=== PATIENT | female | born 1960 | race Caucasian/White ===

== ENCOUNTER → 2017-08-04 | Outpatient (CLI) | payer BC ==
[~2017-08-04] MED LIST: ASPIRIN E.C. 8181 MG PO; EFFEXOR XR75 MG PO; FIBERCON625 MG PO; METFORMIN500 MG PO; PRILOSEC 10MG10 MG PO; VITAMIN D1000 IU PO; [UNRECOGNIZED DRUG - OTHER] PO
== END ==
LOC: MC.RAD 09:20
DX: Z12.31 Encounter for screening mammogram for malignant neoplasm of breast (principal)

== ENCOUNTER → 2017-08-11 | Outpatient (CLI) | payer BC | LOC: MC.RAD 12:42 | DX: N63.20 Unspecified lump in the left breast, unspecified quadrant (principal) ==

== ENCOUNTER → 2017-08-15 | Outpatient (CLI) | payer BC | LOC: MC.RAD 09:53 | DX: D05.02 Lobular carcinoma in situ of left breast (principal) ==

== ENCOUNTER 2017-08-25 06:49 | Day surgery (SDC) | payer BC ==
[~2017-08-25] VITALS: Ht 180.3 cm; Wt 103.8 kg
[2017-08-25] VITALS (7 sets, daily range): BP systolic 146–170; BP diastolic 64–84; PULSE 47–57; TEMP 97.4–98.7
[2017-08-25] MEDS ORDERED: ASPIRIN 81M81 MG/TA2 PO (09:01)
[2017-08-25] MEDS ORDERED: OMEGA-3 1000 MG1 CAP PO (09:02)
[2017-08-25] MEDS ORDERED: MELATONIN5 M1 SL (09:02)
[2017-08-25] MEDS ORDERED: ZESTRIL40 MG PO (09:04)
[2017-08-25] MEDS ORDERED: GLUCOPHAGE1000 MG PO (09:04)
[2017-08-25] MEDS ORDERED: LAMICTAL 25MG T25 MG PO (09:04)
[2017-08-25] MEDS ORDERED: LOPRESSOR 550 MG/TAB PO (09:05)
[2017-08-25] MEDS ORDERED: DIFLUCAN150 MG PO ×2 (09:06→09:07)
[2017-08-25] MEDS ORDERED: WELLBUTRIN XL150 MG PO (09:06)
[2017-08-25] MEDS ORDERED: MOTRIN 600600 MG/TAB PO (16:24)
[2017-08-25] MEDS ORDERED: COLACE 100100 MG/CAP PO (16:24)
[2017-08-25] MEDS ORDERED: PERCOCET 325 MG1 TA2 PO (16:25)
== END 2017-08-25 21:30 | disposition home or self-care (01) ==
LOC: SDCO 06:49 → SURG 18:25 → SDCO 21:30
DX: C50.912 Malignant neoplasm of unspecified site of left female breast (principal); C77.3 Secondary and unspecified malignant neoplasm of axilla and upper limb lymph nodes; E11.9 Type 2 diabetes mellitus without complications; E78.5 Hyperlipidemia, unspecified; D64.9 Anemia, unspecified; I10 Essential (primary) hypertension; K21.9 Gastro-esophageal reflux disease without esophagitis; F32.9 Major depressive disorder, single episode, unspecified; Z79.84 Long term (current) use of oral hypoglycemic drugs; Z79.82 Long term (current) use of aspirin; Z82.49 Family history of ischemic heart disease and other diseases of the circulatory system; Z83.3 Family history of diabetes mellitus
CPT/HCPCS: OP; A9541; J0690; J1100; J1170; J1885; J2405; J2704; J3010; J7030; J7120

== ENCOUNTER 2017-09-06 09:44 | Day surgery (SDC) | payer BC ==
[2017-09-06] VITALS (10 sets, daily range): BP systolic 116–145; BP diastolic 49–68; PULSE 47–63; TEMP 98.2–99
[~2017-09-06] VITALS: Ht 180.3 cm; Wt 101.5 kg
[~2017-09-06 09:44] MED LIST changes: +ASPIRIN 81M81 MG/TA2 PO; +COLACE 100100 MG/CAP PO; +DIFLUCAN150 MG PO; +GLUCOPHAGE1000 MG PO; +LAMICTAL 25MG T25 MG PO; +LOPRESSOR 550 MG/TAB PO; +MELATONIN5 M1 SL; +MOTRIN 600600 MG/TAB PO; +OMEGA-3 1000 MG1 CAP PO; +PERCOCET 325 MG1 TA2 PO; +WELLBUTRIN XL150 MG PO; +ZESTRIL40 MG PO
[2017-09-06] MEDS ORDERED: LAMICTAL 100MG100 MG PO (10:37)
[2017-09-06] MEDS ORDERED: LEXAPRO 5MG5 MG PO (10:37)
[2017-09-06] MEDS ORDERED: PERCOCET 325 MG1 TA2 PO (13:57)
[2017-09-06] MEDS ORDERED: MOTRIN 600600 MG/TAB PO (13:57)
== END 2017-09-06 17:17 | disposition home or self-care (01) ==
LOC: SDCO 09:44
DX: C50.912 Malignant neoplasm of unspecified site of left female breast (principal); Z17.0 Estrogen receptor positive status [ER+]; E78.2 Mixed hyperlipidemia; I10 Essential (primary) hypertension; K21.9 Gastro-esophageal reflux disease without esophagitis; F32.9 Major depressive disorder, single episode, unspecified; Z79.84 Long term (current) use of oral hypoglycemic drugs; Z79.82 Long term (current) use of aspirin
CPT/HCPCS: J0690; J1100; J1885; J2270; J2405; J2704; J3010; J7030

== ENCOUNTER 2017-10-14 10:34 | Day surgery (SDC) | payer BC ==
[2017-10-14] VITALS (7 sets, daily range): BP systolic 125–149; BP diastolic 58–64; PULSE 47–52; TEMP 98.4–98.6
[~2017-10-14] VITALS: Ht 180.3 cm; Wt 102.0 kg
[~2017-10-14 10:34] MED LIST changes: +LAMICTAL 100MG100 MG PO; +LEXAPRO 5MG5 MG PO
[2017-10-14] MEDS ORDERED: ZOCOR 20MG20 MG PO (11:40)
[2017-10-14] MEDS ORDERED: LATUDA20 MG PO (11:43)
[2017-10-14] MEDS ORDERED: COLACE 100100 MG/CAP PO (14:48)
[2017-10-14] MEDS ORDERED: PERCOCET 325 MG1 TA2 PO (14:48)
[2017-10-14] MEDS ORDERED: MOTRIN 600600 MG/TAB PO (14:48)
== END 2017-10-14 18:00 | disposition home or self-care (01) ==
LOC: SDCO 10:34
DX: C50.912 Malignant neoplasm of unspecified site of left female breast (principal); C77.3 Secondary and unspecified malignant neoplasm of axilla and upper limb lymph nodes; E11.9 Type 2 diabetes mellitus without complications; Z79.84 Long term (current) use of oral hypoglycemic drugs; Z79.82 Long term (current) use of aspirin; I10 Essential (primary) hypertension
CPT/HCPCS: C1788; J1644; J2270; J2405; J2704; J3010; J7120

== ENCOUNTER → 2017-11-03 | Outpatient (CLI) | payer BC ==
[~2017-11-03] MED LIST changes: +LATUDA20 MG PO; +ZOCOR 20MG20 MG PO
== END ==
LOC: COL.VAS 11:00
DX: C50.412 Malignant neoplasm of upper-outer quadrant of left female breast (principal)

== ENCOUNTER → 2018-09-07 | Outpatient (CLI) | payer BC | LOC: MC.RAD 09:40 | DX: N64.89 Other specified disorders of breast (principal); N63.20 Unspecified lump in the left breast, unspecified quadrant; Z85.3 Personal history of malignant neoplasm of breast; Z98.890 Other specified postprocedural states ==

== ENCOUNTER → 2018-09-12 | Outpatient (CLI) | payer BC | LOC: MC.RAD 08:56 | DX: N64.89 Other specified disorders of breast (principal); Z85.3 Personal history of malignant neoplasm of breast; Z92.3 Personal history of irradiation; Z98.890 Other specified postprocedural states ==

== ENCOUNTER → 2018-11-28 | Outpatient (CLI) | payer BC | LOC: MC.RAD 13:48 | DX: I10 Essential (primary) hypertension (principal); Z98.890 Other specified postprocedural states; Z85.3 Personal history of malignant neoplasm of breast; Z98.82 Breast implant status; Z92.3 Personal history of irradiation | CPT/HCPCS: G0279 ==

== ENCOUNTER 2019-03-15 18:25 | Emergency (ER) | payer BC ==
[~2019-03-15] VITALS: Ht 180.3 cm; Wt 90.9 kg
[2019-03-15 20:25] LABS: BASO % 0.3 % (0.0-2.0); EOS % 0.5 % (0-4.0); GRAN # 2.6 (1.4-6.5); HEMATOCRIT 39.7 % (37.0-47.0); HEMOGLOBIN 13.1 g/dl (12.5-16.0); LYMPH # 0.9 (1.2-3.4); LYMPH % 21.7 % (20.0-51.0); MEAN CELL VOLUME 90 fl (80.0-100.0); MEAN CORPUSCULAR HEMOGLOBIN 30 pg (27.0-31.0); MEAN CORPUSCULAR HGB CONC 33 g/dl (33.0-37.0); MONO # 0.5 (0.1-0.6); MONO % 11.5 % (1.7-9.3); PLATELET COUNT 116 K/mm3 (130-400); RED BLOOD COUNT 4.41 M/mm3 (4.10-5.30); REDCELL DISTRIBUTION WIDTH-CV 13.2 % (11.5-14.5)
[2019-03-15 20:36] LABS: ALANINE AMINOTRANSFERASE < 6 U/L (9-52); ALBUMIN 3.6 gm/dL (3.5-5.0); ALKALINE PHOSPHATASE 49 U/L (50-136); ANION GAP 8 mmol/L (7-16); AST,SGOT 10 U/L (15-37); BILIRUBIN,TOTAL 0.5 mg/dL (0.0-1.0); BLOOD UREA NITROGEN 12 mg/dL (7-17); CALCIUM 8.9 mg/dL (8.4-10.2); CARBON DIOXIDE 28 mmol/L (22-30); CHLORIDE 103 mmol/L (98-107); CREATININE, serum 0.48 (0.52-1.25); GLUCOSE 210 mg/dL (74-106); POTASSIUM 3.6 mmol/L (3.4-5.0); SODIUM 139 mmol/L (137-145); TOTAL PROTEIN 6.2 gm/dL (6.4-8.2)
[2019-03-15 20:37] LABS: ACETAMINOPHEN < 10 ug/mL (10-30); ALCOHOL(ethanol),MEDICAL < 10 mg/dL; SALICYLATE < 1.0 mg/dL
[2019-03-15 20:50] LABS: VALPROIC ACID (DEPAKENE) 93.7 ug/mL (50.0-100.0)
[2019-03-15 20:51] LABS: COLLECTION METHOD CLEAN CATCH
[2019-03-15 20:56] LABS: MUCOUS Present /lpf; PH 5 (5-8); URINE APPEARANCE Clear; URINE BACTERIA None Seen /hpf; URINE BILIRUBIN Negative (NEGATIVE); URINE BLOOD Negative (NEGATIVE); URINE COLOR Yellow; URINE GLUCOSE 3+ (NEGATIVE); URINE KETONE 1+ (NEGATIVE); URINE LEUKOCYTE ESTERASE 1+ (NEGATIVE); URINE NITRATE Negative (NEGATIVE); URINE PROTEIN(semi-quant) 1+ (NEGATIVE); URINE UROBILINOGEN >=4.0 mg/dL (NEGATIVE)
[2019-03-15 21:06] LABS: TRICYCLIC ANTIDEPRESS URINE NEGATIVE
[2019-03-16 01:50] VITALS: BP 121/56; PULSE 52; TEMP 97.8
[2019-03-16] MEDS ORDERED: OMNICEF 300MG300 MG PO (02:54)
[2019-03-16] MEDS ORDERED: DEPAKOTE500 MG PO (05:22)
[2019-03-16] MEDS ORDERED: GLUCOTROL 5M5 MG/TAB PO (05:23)
[2019-03-16] MEDS ORDERED: ARIMIDEX1 MG PO (05:26)
== END 2019-03-16 07:50 ==
LOC: COL.ER 18:25
PROVIDERS: Physician Assistant
DX: N39.0 Urinary tract infection, site not specified (principal); R45.851 Suicidal ideations; Z79.84 Long term (current) use of oral hypoglycemic drugs; Z79.82 Long term (current) use of aspirin

== ENCOUNTER 2019-05-27 18:50 | Emergency (ER) | payer BC ==
[~2019-05-27] VITALS: Ht 180.3 cm; Wt 92.3 kg
[~2019-05-27 18:50] MED LIST changes: +ARIMIDEX1 MG PO; +DEPAKOTE500 MG PO; +GLUCOTROL 5M5 MG/TAB PO; +OMNICEF 300MG300 MG PO
[2019-05-27 18:56] VITALS: TEMP 98.6
[2019-05-27 19:20] LABS: BASO % 0.2 % (0.0-2.0); EOS # 0.1 (0.0-0.7); EOS % 0.6 % (0-4.0); GRAN # 7.9 (1.4-6.5); GRAN % 74.8 % (42.2-75.2); HEMOGLOBIN 13.8 g/dl (12.5-16.0); LYMPH # 1.8 (1.2-3.4); LYMPH % 16.8 % (20.0-51.0); MEAN CELL VOLUME 90 fl (80.0-100.0); MEAN CORPUSCULAR HEMOGLOBIN 29 pg (27.0-31.0); MEAN CORPUSCULAR HGB CONC 32 g/dl (33.0-37.0); MEAN PLATELET VOLUME 9.6 fl (7.4-10.4); MONO # 0.8 (0.1-0.6); MONO % 7.3 % (1.7-9.3); PLATELET COUNT 192 K/mm3 (130-400); RED BLOOD COUNT 4.79 M/mm3 (4.10-5.30); REDCELL DISTRIBUTION WIDTH-CV 12.7 % (11.5-14.5)
[2019-05-27 19:34] LABS: ALANINE AMINOTRANSFERASE 13 U/L (4-34); ALBUMIN 4.3 gm/dL (3.5-5.0); ALKALINE PHOSPHATASE 77 U/L (50-136); ANION GAP 11 mmol/L (7-16); AST,SGOT 16 U/L (15-37); BILIRUBIN,TOTAL 0.6 mg/dL (0.0-1.0); BLOOD UREA NITROGEN 15 mg/dL (7-17); CALCIUM 9.2 mg/dL (8.4-10.2); CARBON DIOXIDE 27 mmol/L (22-30); CHLORIDE 101 mmol/L (98-107); CREATINE KINASE 25 U/L (30-135); GLUCOSE 160 mg/dL (74-106); LIPASE 28 U/L (23-300); POTASSIUM 4.2 mmol/L (3.4-5.0); SODIUM 138 mmol/L (137-145); TOTAL PROTEIN 7.2 gm/dL (6.4-8.2)
[2019-05-27 19:46] LABS: TROPONIN-I < 0.012 ng/mL (0.000-0.035)
[2019-05-27] MEDS ORDERED: MEDROL 4MG DOSPA4 MG PO (21:46)
[2019-05-27 22:01] VITALS: BP 147/73; PULSE 54
== END 2019-05-27 22:01 | disposition home or self-care (01) ==
LOC: COL.ER 18:50
PROVIDERS: Emergency Medicine
DX: R09.1 Pleurisy (principal); I10 Essential (primary) hypertension; E11.9 Type 2 diabetes mellitus without complications; E78.5 Hyperlipidemia, unspecified; F32.9 Major depressive disorder, single episode, unspecified; Z88.8 Allergy status to other drugs, medicaments and biological substances; Z85.3 Personal history of malignant neoplasm of breast; Z79.82 Long term (current) use of aspirin; Z79.84 Long term (current) use of oral hypoglycemic drugs
CPT/HCPCS: J1885; J2060; J7030; J7512